=== PATIENT | male | born 1995 | race Two or more races ===

== ENCOUNTER 2023-12-29 13:57 | Emergency (ER) | payer SELFPAY ==
[~2023-12-29] VITALS: Ht 182.9 cm; Wt 75.0 kg
[2023-12-29] MEDS: ONDANSETRON HCL 4 MG/2 ML VIAL IM ONE (14:38)
[2023-12-29] MEDS: KETOROLAC TROMETH 30 MG/ML 1ML VIAL IM ONE (14:38)
[2023-12-29 14:45] VITALS: BP 136/84; PULSE 124; RESP 24; TEMP 97.6; O2SAT 96
[2023-12-29 14:50] LABS: Basophils # (auto) 0 10 ^3/uL (0-0.2); Basophils % (auto) 0.8 % (0.0-2.0); Eosinophils # (auto) 0.1 10 ^3/uL (0-0.8); Eosinophils % (auto) 1.7 % (0.0-7.0); Hemoglobin 18.6 g/dL (13.5-17.5); Lymphocytes # (auto) 2.4 10 ^3/uL (0.4-5.4); Lymphocytes % (auto) 47.7 % (10.0-50.0); Mean Corpuscular Hemoglobin 25.4 pg (28.0-32.0); Mean Corpuscular Hgb Conc. 32.7 g/dL (32.0-36.0); Mean Corpuscular Volume 77.6 fL (80.0-100.0); Monocytes # (auto) 0.5 10 ^3/uL (0-1.3); Monocytes % (auto) 10.7 % (0.0-12.0); Neutrophils % (auto) 39.1 % (37.0-80.0); Nucleated Red Blood Cells % 0.3 %; Platelet Count (auto) 391 10^3/uL (140-450); Red Blood Cells 7.34 10^6/uL (4.5-5.90); Red Cell Distribution Width 15.3 % (11.8-14.3)
[2023-12-29 14:51] LABS: Hematocrit 56.9 % (41.0-53.0)
[2023-12-29 14:55] LABS: Urine Bacteria FEW /hpf (None Seen); Urine Blood 1+ /uL (Negative); Urine Clarity Clear (Clear); Urine Color Yellow (Yellow); Urine Hyaline Cast FEW /lpf (0 - 2); Urine Mucus FEW (None Seen); Urine Protein, UAD 3+ (Negative); Urine Specific Gravity 1.036 (1.001-1.035); Urine Sperm PRESENT /hpf (None Seen); Urine Urobilinogen 2 mg/dL (Negative); Urine WBC 5 /hpf (0 - 3)
[2023-12-29 15:01] LABS: Chloride 91 mmol/L (98-107); Potassium 3.3 mmol/L (3.5-5.1); Sodium 133 mmol/L (136-145)
[2023-12-29 15:02] LABS: Anion Gap 9 (5-15); Carbon Dioxide 33 mmol/L (20-31)
[2023-12-29 15:03] LABS: Calcium 10.4 mg/dL (8.7-10.4)
[2023-12-29 15:07] LABS: BUN/Creatinine Ratio 10.7 (10.0-20.0); Blood Urea Nitrogen 21 mg/dL (9-23); Glucose 128 mg/dL (74-106)
[2023-12-29] MEDS: SODIUM CHLORIDE 0.9% 1,000 ML IV ONE (15:30)
[2023-12-29] MEDS ORDERED: ZOFR4T PO (16:59)
== END 2023-12-29 17:14 | disposition home or self-care (01) ==
LOC: ER 13:57
DX: K52.9 Noninfective gastroenteritis and colitis, unspecified (principal); F12.90 Cannabis use, unspecified, uncomplicated
CPT/HCPCS: 36415; 80048; 81001; 85025; 96360; 96372; 99284; J1885; J2405; J7030; 96361